=== PATIENT | female | born 1975 | race Caucasian/White ===

== ENCOUNTER → 2016-10-03 | Outpatient (CLI) | payer BC ==
--- NOTE | 2016-10-03 12:50 | CT ---
EXAMINATION TYPE: CT abdomen w con DATE OF EXAM: 10/03/2016 12:26 PM COMPARISON: 09/05/2011 HISTORY: Irritable bowel syndrome with diarrhea CT DLP: 1386.00 mGycm Automated exposure control for dose reduction was used. TECHNIQUE: Helical acquisition of images was performed from the lung bases through the top of iliac crest to include entire abdomen. CONTRAST: Performed with Oral Contrast and with IV Contrast, patient injected with 100 ml mL of Omnipaque 300. FINDINGS: LUNG BASES: No significant abnormality is appreciated. LIVER/GB: No significant abnormality is appreciated. Postcholecystectomy changes noted. PANCREAS: No significant abnormality is seen. SPLEEN: No significant abnormality is seen. ADRENALS: No significant abnormality is seen. KIDNEYS: No significant abnormality is seen. BOWEL: No significant abnormality is seen. LYMPH NODES: No pathologic adenopathy. OSSEOUS STRUCTURES: No significant abnormality is seen. OTHER: Aorta of normal caliber. IMPRESSION: NO ACUTE PROCESS.
== END | disposition home or self-care (01) ==
LOC: RADCTMAIN 11:46
PROVIDERS: ATTEND Internal Medicine
DX: R10.12 Left upper quadrant pain (principal)
CPT/HCPCS: 74160; Q9967

== ENCOUNTER → 2017-11-22 | Outpatient (CLI) | payer BC ==
--- NOTE | 2017-11-27 11:19 | P.ARTDOP ---
Arterial Doppler LOWER EXTREMITY ARTERIAL DOPPLER: DATE OF SERVICE: 11/22/2017 Reason for study: Pain and swelling left leg. Doppler waveforms: [ multiphasic bilaterally throughout ]. Pulse volume recording: [ normal configuration ]. Pressure gradients: [ none ]. Ankle-brachial indices: [ greater than 1 bilaterally]. Toe pressures: [] on the right, [] on the left Impression: [ normal study ].
== END | disposition home or self-care (01) ==
LOC: RADUSWWP 11:48
PROVIDERS: ATTEND Internal Medicine
DX: I73.9 Peripheral vascular disease, unspecified (principal)
CPT/HCPCS: 93923

== ENCOUNTER → 2018-10-26 | Outpatient (CLI) | payer BC | END | disposition home or self-care (01) | LOC: RADMRIMAIN 09:40 | PROVIDERS: ATTEND Internal Medicine | DX: Z53.9 Procedure and treatment not carried out, unspecified reason (principal) ==

== ENCOUNTER → 2019-02-20 | Outpatient (CLI) | payer BC ==
--- NOTE | 2019-02-25 10:04 | MM ---
Reason for exam: screening (asymptomatic). Last mammogram was performed 7 years and 7 months ago. History: Patient history of other cancer. Family history of breast cancer in 2 maternal aunts. Physical Findings: A clinical breast exam by your physician is recommended on an annual basis and results should be correlated with mammographic findings. MG 3D Screening Mammo W/Cad Bilateral CC and MLO view(s) were taken. Prior study comparison: August 01, 2011, mammogram, performed at [facility]. There are scattered fibroglandular densities. No suspicious abnormality. No significant changes when compared with prior studies. ASSESSMENT: Negative, BI-RAD 1 RECOMMENDATION: Routine screening mammogram of both breasts in 1 year.
== END | disposition home or self-care (01) ==
LOC: RADMAMWWP 09:49
PROVIDERS: ATTEND Internal Medicine
DX: Z12.31 Encounter for screening mammogram for malignant neoplasm of breast (principal)
CPT/HCPCS: 77063; 77067

== ENCOUNTER → 2019-09-17 | Outpatient (CLI) | payer BC ==
--- NOTE | 2019-09-17 11:13 | US ---
EXAMINATION TYPE: US abdomen complete DATE OF EXAM: 09/17/2019 COMPARISON: CT, US CLINICAL HISTORY: R10.9 abd pain. Intermittent LUQ pain; HX of IBS; gallbladder removed EXAM MEASUREMENTS: Liver Length: 11.9 cm Gallbladder Wall: surgically removed CBD: 0.4 cm Spleen: 10.6 cm Right Kidney: 11.1 x 5.5 x 4.9 cm Left Kidney: 11.6 x 4.6 x 5.5 cm Pancreas: hyperechoic Liver: hyperechoic to right renal cortex suggests fatty liver Gallbladder: surgically removed Evidence for sonographic Mendoza's sign: no CBD: wnl Spleen: wnl Right Kidney: No hydronephrosis or masses seen Left Kidney: No hydronephrosis or masses seen Upper IVC: wnl Abd Aorta: size is wnl, mild intimal wall thickening is noted distally LUQ at pain: bowel gas is noted IMPRESSION: 1. There may be some mild fatty infiltration of liver.
== END | disposition home or self-care (01) ==
LOC: RADUSWWP 09:31
PROVIDERS: ATTEND Internal Medicine
DX: R10.9 Unspecified abdominal pain (principal)
CPT/HCPCS: 76700

== ENCOUNTER 2021-07-11 11:53 | Emergency (ER) | payer BC ==
[2021-07-11 12:21] VITALS: BP 111/76; TEMP 98.9
--- NOTE | 2021-07-11 12:24 | ED ---
General Adult HPI - General Stated complaint: antibody treatment, covid exposure Time Seen by Provider: 07/11/21 11:55 Source: patient, RN notes reviewed, old records reviewed - History of Present Illness Initial comments: This a 45-year-old female presents emergency department because of significant exposure to a COVID Positive patient. Her husbands got diffuse COVID pneumonia and she has high blood pressure and is morbidly obese. Patient would like to be given the monoclonal antibodies prophylactically. Patient denies any fever chills. Patient denies any chest pain difficulty breathing shortest breath. Patient denies any abdominal pain patient denies any problems whatsoever. - Related Data Home Medications Medication Instructions Recorded Confirmed Phentermine HCl [Adipex-P] 37.5 mg PO QAM 06/22/14 06/22/14 Previous Rx's Medication Instructions Recorded Ibuprofen [Motrin] 800 mg PO Q8HR PRN #30 tab 06/22/14 Allergies Allergy/AdvReac Type Severity Reaction Status Date / Time No Known Allergies Allergy Verified 06/22/14 20:32 Review of Systems ROS Statement: Those systems with pertinent positive or pertinent negative responses have been documented in the HPI. ROS Other: All systems not noted in ROS Statement are negative. Past Medical History Past Medical History: No Reported History History of Any Multi-Drug Resistant Organisms: None Reported Past Surgical History: Section, Cholecystectomy, Orthopedic Surgery Past Psychological History: No Psychological Hx Reported Past Alcohol Use History: Rare Past Drug Use History: None Reported General Exam - General Exam Comments Initial Comments: GENERAL: Patient is well-developed and well-nourished. Patient is nontoxic and well- hydrated and is in no acute distress. ENT: Neck is soft and supple. No significant lymphadenopathy is noted. Oropharynx is clear. Moist mucous membranes. Neck has full range of motion without eliciting any pain. EYES: The sclera were anicteric and conjunctiva were pink and moist. Extraocular movements were intact and pupils were equal round and reactive to light. Eyelids were unremarkable. PULMONARY: Unlabored respirations. Good breath sounds bilaterally. No audible rales rhonchi or wheezing was noted. CARDIOVASCULAR: There is a regular rate and rhythm without any murmurs gallops or rubs. ABDOMEN: Soft and nontender with normal bowel sounds. SKIN: Skin is clear with no lesions or rashes and otherwise unremarkable. NEUROLOGIC: Patient is alert and oriented x3. Cranial nerves II through XII are grossly intact. Motor and sensory are also intact. Normal speech, volume and content. Symmetrical smile. MUSCULOSKELETAL: Normal extremities with adequate strength and full range of motion. LYMPHATICS: No significant lymphadenopathy is noted PSYCHIATRIC: Normal psychiatric evaluation. Medical Decision Making - Medical Decision Making Patient is given received monoclonal antibodies and be observed for one hour. Disposition Clinical Impression: Exposure to COVID-19 virus Disposition: HOME SELF-CARE Condition: Good Instructions (If sedation given, give patient instructions): Coronavirus Disease 2019 (COVID-19) Additional Instructions: Patient should return to the emergency department as any difficulty breathing or shortness of breath Is patient prescribed a controlled substance at d/c from ED?: No Referrals: Gabbi Steele MD [Primary Care Provider] - 1-2 days Time of Disposition: 12:24
[2021-07-11] MEDS ORDERED: BAMLANIVIMAB (EUA) 700 MG, ETESEVIMAB (EUA) 1,400 MG in SODIUM CHLORIDE 0.9% 50 ML IVPB ONE (13:00)
[2021-07-11] MEDS ORDERED: SODIUM CHLORIDE 0.9% 50 ML IVPB ONE (13:30)
[2021-07-11 14:26] VITALS: PULSE 88; RESP 18
== END 2021-07-11 14:25 | disposition home or self-care (01) ==
LOC: EC 11:53
DX: Z20.822 Contact with and (suspected) exposure to COVID-19 (principal)
CPT/HCPCS: 87635; 99283; 96374; J3490